=== PATIENT | female | born 1935 | race Caucasian/White ===

== ENCOUNTER 2023-02-05 10:38 | Inpatient (IN) ==
[2023-02-05] MEDS ORDERED: Lidocaine PATCH 5% PATCH TRANSDERM ONE (11:26)
[2023-02-05 12:20] LABS: ABS Lymphocytes 0.5 10^3/ul (1.0-4.8); ABS Monocytes 0.6 10^3/ul (0-0.8); ABS Neutrophils 7.7 10^3/ul (1.5-7.7); Eosinophil % 0.2 %; Hematocrit 37 % (35-47); Lymphocyte % 6.1 %; Mean Corpuscular HGB Conc 35 g/dL (31-36); Mean Corpuscular Hemoglobin 31 pg (27-31); Mean Corpuscular Volume 89 fL (80-97); Mean Platelet Volume 6.7 fL (7.4-10.4); Nucleated Red Blood Cells % 0.1; Platelet Count 373 10^3/uL (150-450); Red Blood Count 4.18 10^6 /uL (3.70-4.87); Red Cell Distribution Width 14 % (10-15); White Blood Count 8.9 10^3/uL (3.5-10.8)
[2023-02-05 13:06] LABS: Albumin 4.5 g/dL (3.2-5.2); Calcium 9.6 mg/dL (8.6-10.3); Creatinine, Serum 0.48 mg/dL (0.51-0.95); Globulin 2.3 g/dL (2-4); Magnesium 2.1 mg/dL (1.9-2.7); Potassium 3.8 mmol/L (3.5-5.0); Total Bilirubin 0.8 mg/dL (0.2-1.0); Total Protein 6.8 g/dL (6.4-8.9); eGFR CKD-EPI 92.2 (>60)
[2023-02-05] MEDS ORDERED: NS 0.9% 1000 ml BAG 1,000 ML IV ONE (13:15)
[2023-02-05] MEDS ORDERED: Iohexol 300 (CONTRAST) 10 ML SDV IV ONE (13:19)
[2023-02-05] MEDS ORDERED: Potassium Chloride LIQUID 20 MEQ/15 ML LIQUID PO ONE (16:13)
[2023-02-05 17:23] LABS: Calcium 8.4 mg/dL (8.6-10.3); Creatinine, Serum 0.38 mg/dL (0.51-0.95); Potassium 3.3 mmol/L (3.5-5.0); eGFR CKD-EPI 97.5 (>60)
[2023-02-05 18:26] LABS: TSH Ultra Thyroid Stim Horm 2.32 mcIU/mL (0.34-5.60)
[2023-02-05] MEDS ORDERED: Potassium Chlor 20 meq TAB.ER PO ONE (18:47)
[2023-02-05] MEDS ORDERED: fentaNYL 100 mcg/2 ml 50 MCG/ML VIAL IV SLOW PU PRN (18:57)
[2023-02-05] MEDS ORDERED: Polyethylene Glycol 3350 17 GM PACKET PO PRN (18:58)
[2023-02-05] MEDS: Enoxaparin 40 MG/0.4 ML SYR SUBCUT SCH (20:10)
[2023-02-05 21:08] LABS: Urine Osmo 278 mOsm/kg (150-1150)
[2023-02-05] MEDS: Acetaminophen IV 1 GM/100ML 1,000 MG/100 ML BAG IV SCH (22:44)
[2023-02-05] MEDS ORDERED: Ure-Na 15 GM POWD.PACK PO ONE (22:56)
[2023-02-06] MEDS: Acetaminophen IV 1 GM/100ML 1,000 MG/100 ML BAG IV SCH ×3 (05:44→21:42)
[2023-02-06 06:44] LABS: ABS Lymphocytes 0.8 10^3/ul (1.0-4.8); ABS Monocytes 0.7 10^3/ul (0-0.8); ABS Neutrophils 4.3 10^3/ul (1.5-7.7); Eosinophil % 0.3 %; Hematocrit 35 % (35-47); Lymphocyte % 13.1 %; Mean Corpuscular HGB Conc 34 g/dL (31-36); Mean Corpuscular Hemoglobin 31 pg (27-31); Mean Corpuscular Volume 89 fL (80-97); Mean Platelet Volume 6.9 fL (7.4-10.4); Platelet Count 336 10^3/uL (150-450); Red Blood Count 3.94 10^6 /uL (3.70-4.87); Red Cell Distribution Width 14 % (10-15); White Blood Count 5.8 10^3/uL (3.5-10.8)
[2023-02-06 07:07] LABS: Calcium 8.7 mg/dL (8.6-10.3); Creatinine, Serum 0.46 mg/dL (0.51-0.95); Magnesium 1.7 mg/dL (1.9-2.7); Potassium 3.6 mmol/L (3.5-5.0); eGFR CKD-EPI 93.1 (>60)
[2023-02-06] MEDS ORDERED: Magnesium Sulfate IV 1GM/100ML 1 GM/100 ML BAG IV ONE (07:32)
[2023-02-06] MEDS ORDERED: Influenza vaccine *QUAD* *2022-23* 0.5 ML SYRINGE IM ONE (09:00)
[2023-02-06] MEDS: Polyethylene Glycol 3350 17 GM PACKET PO SCH (13:31)
[2023-02-06] MEDS: Lidocaine PATCH 5% PATCH TRANSDERM SCH (14:18)
[2023-02-06] MEDS: Enoxaparin 40 MG/0.4 ML SYR SUBCUT SCH (21:46)
[2023-02-07 06:12] LABS: ABS Lymphocytes 1.2 10^3/ul (1.0-4.8); ABS Monocytes 0.8 10^3/ul (0-0.8); ABS Neutrophils 6.5 10^3/ul (1.5-7.7); Eosinophil % 0.5 %; Hematocrit 34 % (35-47); Hemoglobin 11.9 g/dL (12.0-16.0); Lymphocyte % 13.7 %; Mean Corpuscular HGB Conc 35 g/dL (31-36); Mean Corpuscular Hemoglobin 31 pg (27-31); Mean Corpuscular Volume 90 fL (80-97); Mean Platelet Volume 6.8 fL (7.4-10.4); Nucleated Red Blood Cells % 0.1; Platelet Count 309 10^3/uL (150-450); Red Blood Count 3.85 10^6 /uL (3.70-4.87); Red Cell Distribution Width 14 % (10-15); White Blood Count 8.5 10^3/uL (3.5-10.8)
[2023-02-07] MEDS: Acetaminophen IV 1 GM/100ML 1,000 MG/100 ML BAG IV SCH ×3 (06:19→21:45)
[2023-02-07 06:56] LABS: Creatinine, Serum 0.73 mg/dL (0.51-0.95); Magnesium 2.2 mg/dL (1.9-2.7); Potassium 3.1 mmol/L (3.5-5.0)
[2023-02-07] MEDS ORDERED: Potassium Chlor 20 meq TAB.ER PO ONE (08:40)
[2023-02-07] MEDS: Lidocaine PATCH 5% PATCH TRANSDERM SCH (09:08)
[2023-02-07] MEDS: Polyethylene Glycol 3350 17 GM PACKET PO SCH (09:08)
[2023-02-07] MEDS: Enoxaparin 40 MG/0.4 ML SYR SUBCUT SCH (20:21)
[2023-02-08] MEDS: Acetaminophen IV 1 GM/100ML 1,000 MG/100 ML BAG IV SCH (05:54)
[2023-02-08 07:30] LABS: ABS Basophils 0.1 10^3/ul (0-0.2); ABS Eosinophils 0.1 10^3/ul (0-0.6); ABS Lymphocytes 1.5 10^3/ul (1.0-4.8); ABS Monocytes 0.7 10^3/ul (0-0.8); Eosinophil % 0.9 %; Hematocrit 32 % (35-47); Hemoglobin 11.4 g/dL (12.0-16.0); Lymphocyte % 20.1 %; Mean Corpuscular HGB Conc 35 g/dL (31-36); Mean Corpuscular Hemoglobin 32 pg (27-31); Mean Corpuscular Volume 90 fL (80-97); Mean Platelet Volume 6.9 fL (7.4-10.4); Platelet Count 268 10^3/uL (150-450); Red Blood Count 3.56 10^6 /uL (3.70-4.87); Red Cell Distribution Width 14 % (10-15); White Blood Count 7.3 10^3/uL (3.5-10.8)
[2023-02-08 08:28] LABS: Creatinine, Serum 0.6 mg/dL (0.51-0.95); Potassium 3.6 mmol/L (3.5-5.0); eGFR CKD-EPI 87.4 (>60)
[2023-02-08] MEDS ORDERED: Magnesium Hydroxide LIQ 30 ML UDC PO ONE (08:45)
[2023-02-08] MEDS: Polyethylene Glycol 3350 17 GM PACKET PO SCH (09:03)
[2023-02-08] MEDS: Lidocaine PATCH 5% PATCH TRANSDERM SCH (09:04)
[2023-02-08] MEDS: Enoxaparin 40 MG/0.4 ML SYR SUBCUT SCH (21:00)
[2023-02-09] MEDS ORDERED: Magnesium Hydroxide LIQ 30 ML UDC PO ONE (06:00)
[2023-02-09 06:35] LABS: ABS Basophils 0.1 10^3/ul (0-0.2); ABS Eosinophils 0.1 10^3/ul (0-0.6); ABS Lymphocytes 1.8 10^3/ul (1.0-4.8); ABS Monocytes 0.8 10^3/ul (0-0.8); Eosinophil % 1.1 %; Hematocrit 33 % (35-47); Hemoglobin 11.4 g/dL (12.0-16.0); Lymphocyte % 18.7 %; Mean Corpuscular HGB Conc 35 g/dL (31-36); Mean Corpuscular Hemoglobin 31 pg (27-31); Mean Corpuscular Volume 89 fL (80-97); Mean Platelet Volume 6.9 fL (7.4-10.4); Platelet Count 268 10^3/uL (150-450); Red Cell Distribution Width 14 % (10-15); White Blood Count 9.7 10^3/uL (3.5-10.8)
[2023-02-09 06:55] LABS: Creatinine, Serum 0.57 mg/dL (0.51-0.95); Magnesium 2.2 mg/dL (1.9-2.7); Potassium 3.7 mmol/L (3.5-5.0); eGFR CKD-EPI 88.4 (>60)
[2023-02-09] MEDS: Polyethylene Glycol 3350 17 GM PACKET PO SCH (09:01)
[2023-02-09] MEDS: Lidocaine PATCH 5% PATCH TRANSDERM SCH (09:02)
[2023-02-09 19:29] LABS: Calcium 9.2 mg/dL (8.6-10.3); Creatinine, Serum 0.69 mg/dL (0.51-0.95); Potassium 3.5 mmol/L (3.5-5.0); eGFR CKD-EPI 84.5 (>60)
[2023-02-09] MEDS: Enoxaparin 40 MG/0.4 ML SYR SUBCUT SCH (20:53)
[2023-02-10] MEDS ORDERED: Magnesium Hydroxide LIQ 30 ML UDC PO ONE (08:09)
[2023-02-10 08:13] LABS: Calcium 9.1 mg/dL (8.6-10.3); Creatinine, Serum 0.53 mg/dL (0.51-0.95); Potassium 3.5 mmol/L (3.5-5.0)
[2023-02-10] MEDS: Polyethylene Glycol 3350 17 GM PACKET PO SCH (09:06)
[2023-02-10] MEDS: Lidocaine PATCH 5% PATCH TRANSDERM SCH (09:17)
[2023-02-10 10:14] LABS: Rapid COVID-19 Molecular Undetected (Undetected)
[2023-02-10 10:31] VITALS: BP 135/69
== END 2023-02-10 13:20 | DRG 644 ==
LOC: EDHOLD 10:38 → ED 10:38 → EDHOLD 02-06 01:08 → MED 02-06 01:08 → SUATTDRO 02-06 10:53
PROVIDERS: ADMIT Internal Medicine; ATTEND Hospitalist